=== PATIENT | male | born 1985 | race African-American/Black ===

== ENCOUNTER 2019-02-20 13:52 | Emergency (ER) | payer SELFPAY ==
[~2019-02-20] VITALS: Ht 167.6 cm; Wt 78.9 kg
[~2019-02-20 13:52] MED LIST: FLUC200T PO; MOME158. HHN; RISP1TAB27 PO
[2019-02-20 14:16] VITALS: BP 92/64
[2019-02-20] MEDS ORDERED: CEFTRIAXONE 500 MG VIAL ONE (16:22)
[2019-02-20] MEDS ORDERED: AZITHROMYCIN 250 MG TABLET ONE (16:23)
[2019-02-20] MEDS ORDERED: AZITHROMYCIN 250 MG TABLET PO ONE (16:30)
[2019-02-20] MEDS ORDERED: CEFTRIAXONE 500 MG VIAL IM ONE (16:30)
== END 2019-02-20 16:35 | disposition home or self-care (01) ==
LOC: ER 14:01
DX: A64 Unspecified sexually transmitted disease (principal); N34.2 Other urethritis; J45.909 Unspecified asthma, uncomplicated; M86.9 Osteomyelitis, unspecified; D86.9 Sarcoidosis, unspecified; Z79.899 Other long term (current) drug therapy
CPT/HCPCS: 96372; 99283; J0696

== ENCOUNTER 2022-04-12 04:05 | Emergency (ER) | payer MEDICAID ==
[~2022-04-12] VITALS: Ht 170.2 cm; Wt 74.8 kg
[~2022-04-12 04:05] MED LIST changes: -RISP1TAB27 PO; +RISP1TAB97 PO
[2022-04-12 04:10] VITALS: BP 118/87
--- NOTE | 2022-04-12 04:10 | NUR ---
BIBS FOR C/O POSSIBLE EXPOSURE TO HERPES AND "AN SRD" - DISCHARGES, PAIN, FEVER OR CHILLS
[2022-04-12] MEDS ORDERED: DOXYCYCLINE HYCLATE (100 MG) 100 MG TABLET ONE (04:18)
[2022-04-12] MEDS ORDERED: CEFTRIAXONE 500 MG VIAL ONE (04:18)
[2022-04-12] MEDS ORDERED: LIDOCAINE /MPF 1% VIAL 5 ML VIAL ONE (04:18)
[2022-04-12] MEDS ORDERED: ACYC-108 PO (04:20)
[2022-04-12] MEDS ORDERED: DOXY100T2 PO (04:20)
[2022-04-12] MEDS ORDERED: DOXYCYCLINE HYCLATE (100 MG) 100 MG TABLET PO ONE (04:30)
[2022-04-12] MEDS ORDERED: CEFTRIAXONE 500 MG VIAL IM ONE (04:30)
--- NOTE | 2022-04-12 04:31 | NUR ---
Patient discharged to home in stable condition. RX Written and verbal after care instructions given. Patient verbalizes understanding of instruction. PT ambulatory with a steady gait
== END 2022-04-12 04:33 | disposition home or self-care (01) ==
LOC: ER 04:07
DX: A64 Unspecified sexually transmitted disease (principal); J45.909 Unspecified asthma, uncomplicated; Z60.2 Problems related to living alone; Z79.899 Other long term (current) drug therapy
CPT/HCPCS: 99283; 96372; J0696; J3490

== ENCOUNTER 2023-07-07 01:42 | Emergency (ER) | payer MEDICAID ==
[~2023-07-07] VITALS: Ht 170.2 cm; Wt 65.8 kg
[~2023-07-07 01:42] MED LIST changes: +ACYC-108 PO; +DOXY100T2 PO
[2023-07-07 02:27] VITALS: BP 113/72; TEMP 98.1
[2023-07-07] MEDS ORDERED: DOXYCYCLINE HYCLATE (100 MG) 100 MG TABLET PO ONE (02:30)
[2023-07-07] MEDS ORDERED: CEFTRIAXONE 500 MG VIAL IM ONE (02:30)
[2023-07-07] MEDS ORDERED: DOXYCYCLINE HYCLATE (100 MG) 100 MG TABLET ONE (02:31)
[2023-07-07] MEDS ORDERED: CEFTRIAXONE 500 MG VIAL ONE (02:31)
[2023-07-07] MEDS ORDERED: LIDOCAINE /MPF 1% VIAL 5 ML VIAL ONE (02:32)
[2023-07-07] MEDS ORDERED: DOXY100C2 PO ×2 (02:54→03:14)
[2023-07-07 03:00] VITALS: O2SAT 98
[2023-07-07 15:31] LABS: HIV-1 p24 ANTIGEN NON REACTIVE (NONREACTIVE); HIV-1/2 ANTIBODY REACTIVE (NONREACTIVE)
[2023-07-08 23:06] LABS: CHLAMYDIA TRACHOMATIS NAA Positive (Negative); NEISSERIA GONORRHOEAE NAA Positive (Negative)
== END 2023-07-07 03:14 | disposition home or self-care (01) ==
LOC: ER 01:48
DX: N34.2 Other urethritis (principal); A64 Unspecified sexually transmitted disease; J45.909 Unspecified asthma, uncomplicated; Z79.899 Other long term (current) drug therapy; Z60.2 Problems related to living alone
CPT/HCPCS: 99283; 96372; 36415; 87806; 87491; 87591; J0696; J3490